=== PATIENT | female | born 1995 ===

== ENCOUNTER 2017-03-14 12:06 | Emergency (ER) | payer OTHER ==
--- NOTE | 2017-03-14 12:34 | UC ---
Throat Pain/Nasal Gerry HPI - HPI Summary HPI Summary: THREE WEEKS OF COLD SYMPTOMS, STUFFY NOSE CONGESTION, FACIAL (MAXILLARY) PRESSURE, AND PUFFINESS OF FACE. TODAY AWOKE WITH WATERY EYES. NO FEVER. CONGESTION WORSENING. - History of Current Complaint Chief Complaint: UCRespiratory Stated Complaint: EYE ISSUE HEAD CONGESTION Time Seen by Provider: 03/14/17 12:09 Hx Obtained From: Patient Hx Last Menstrual Period: november Onset/Duration: Gradual Onset, Lasting Weeks, Still Present Severity: Moderate Cough: Nonproductive Associated Signs & Symptoms: Positive: Sinus Discomfort, Nasal Discharge - Epiglottits Risk Factors Epiglottis Risk Factors: Negative - Allergies/Home Medications Allergies/Adverse Reactions: Allergies Allergy/AdvReac Type Severity Reaction Status Date / Time No Known Allergies Allergy Verified 03/14/17 12:16 PMH/Surg Hx/FS Hx/Imm Hx Previously Healthy: Yes - Surgical History Surgical History: Yes Surgery Procedure, Year, and Place: [facility] 2014 - Family History Known Family History: Negative: Respiratory Disease - Social History Occupation: Student Lives: With Family Alcohol Use: Occasionally Substance Use Type: None Smoking Status (MU): Never Smoked Tobacco Review of Systems Constitutional: Negative Skin: Negative Eyes: Drainage ENT: Nasal Discharge Respiratory: Cough Cardiovascular: Negative Gastrointestinal: Negative Genitourinary: Negative Motor: Negative Neurovascular: Negative Musculoskeletal: Negative Neurological: Negative Psychological: Negative All Other Systems Reviewed And Are Negative: Yes Physical Exam Triage Information Reviewed: Yes Appearance: No Pain Distress, Well-Nourished, Ill-Appearing - MILDLY, Thin Vital Signs: Initial Vital Signs Temp 98.7 F 03/14/17 12:12 Pulse 74 03/14/17 12:12 Resp 20 03/14/17 12:12 BP 130/75 03/14/17 12:12 Pulse Ox 100 03/14/17 12:12 Eye Exam: Normal Eyes: Positive: Conjunctiva Clear. Negative: Discharge - NO DISCHARGE AT CLINICAL EXAM ENT: Positive: Hearing grossly normal, Nasal congestion, Nasal drainage, TM bulging, TM dull Dental Exam: Normal Neck exam: Normal Neck: Positive: Supple, Nontender, No Lymphadenopathy Respiratory Exam: Other - COUGH Respiratory: Positive: Chest non-tender, Lungs clear, Normal breath sounds, No respiratory distress, No accessory muscle use Cardiovascular Exam: Normal Cardiovascular: Positive: RRR, No Murmur, Pulses Normal Abdominal Exam: Normal Abdomen Description: Positive: Nontender, No Organomegaly Musculoskeletal Exam: Normal Musculoskeletal: Positive: Strength Intact, ROM Intact Neurological Exam: Normal Psychological Exam: Normal Skin Exam: Normal Throat Pain/Nasal Course/Dx - Differential Dx/Diagnosis Differential Diagnosis/HQI/PQRI: Sinusitis, URI Provider Diagnoses: RHINOSINUSITIS Discharge - Discharge Plan Condition: Stable Disposition: HOME Prescriptions: Amoxicillin/Clavulanate TAB* [Augmentin TAB 875*] 875 mg PO BID #20 tab Benzonatate CAP* [Tessalon 100 MG CAP*] 100 mg PO TID PRN #15 cap PRN Reason: Cough Patient Education Materials: Sinusitis (ED) Referrals: [facility] [Outside]
== END 2017-03-14 12:30 | disposition home or self-care (01) ==
LOC: UCEAST 12:06
DX: J32.9 Chronic sinusitis, unspecified (principal)
CPT/HCPCS: 99202; G0463